=== PATIENT | female | born 1940 | race Caucasian/White ===

== ENCOUNTER 2016-11-13 11:35 | Emergency (ER) | payer MEDICARE ==
--- NOTE | ~2016-11-13 | CR110 ---
[facility] A Service of [facility] & [facility] RADIOLOGY TEXT RESULTS PATIENT: MARILEE BENTLEY LOCATION: [facility] : 42 UNIT #: [id number] AGE: [address]: ROBYN HICKEY SEX: F ORDER DR: [id number] [facility] [address] [place], [place] [address] [id number] E MR#: [id number] Acc #: [id number] NAME: MARILEE BENTLEY : 1940 SEX: F STUDY DATE/TIME: 11/13/2016 11:02 UNIT: [facility] ROOM: STUDY DESCRIPTION: CR Finger 2 View 3rd Lt Attending Physician: Robyn Hickey Aprn Ordering Physician: Robyn Hickey Aprn Primary Care Physician: Coral Patrick A.P.RAdelinaNAdelina MEDICAL IMAGING REPORT This report is preliminary unless electronic signature is present EXAM 3 views of the left middle finger INDICATIONS Third finger pain after putting her hand on a sewing machine. FINDINGS No acute fracture or subluxation of the left middle finger is identified. I do not see any focal soft tissue abnormalities. Certainly no radiopaque retained foreign body is seen. There do appear to be some mild degenerative changes involving the left hand. IMPRESSION No acute findings. Dictated by... Kizzy Serrano M.D. THIS IS AN ELECTRONICALLY VERIFIED REPORT Kizzy Serrano M.D. at 11/14/2016 12:58 PM AFF/rnr TD: 11/13/2016 13:05 JOB #: [id number] MEDICAL IMAGING REPORT Page 1 of 1 COPY
[~2016-11-13 11:35] MED LIST: ACIDOPHILUS1 TAB PO; ALFALFA; ALLEGRA; ALLEGRA ALLERG180 MG PO; ALLEGRA PO; AMIODARONE PO; ASCORBIC ACID500 MG; ASPIRIN; ASPIRIN PO; AUGMENTIN PO; AUGMENTIN875 MG PO; B-100 COMPLEX1 TAB PO; BENIFIBER PO; BIOTIN5 MG PO; BLACK COHASH; CALCIUM MAGNESI1 TA1 PO; CARDIZEM CD120 MG PO; COQ-1010 MG; COQ1050 MG PO; COUMADIN2.5 MG PO; COUMADIN5 MG PO; CRANBERRY CONC500 MG PO; CRANBERRY TABS; CRANBERRY200 MG PO; DESYREL50 MG PO; DICYCLOMINE HCL10 MG PO; DICYCLOMINE HCL20 MG PO; DILTIAZEM 24HR120 M1 PO; DOCUSATE SODIU100 MG PO; GARLIC; GIN-ZING100 MG; GINKGO BILOBA30 MG; GINSENG; GLUCOSAMINE-CHO1 TA5 PO; Ginkgo Biloba; IMDUR PO; ISMO; ISMO20 MG PO; K-DUR20 ME1 PO; LASIX PO; LASIX20 MG PO; LIPITOR PO; LIPITOR20 MG PO; LOPRESSOR; LOPRESSOR PO; LOVENOX SUBQ; LOW DOSE ASPIRI81 M2 PO; MAGNESIUM; MILK OF MAGNESIA PO; MULTAQ400 MG PO; MULTI-VITAMIN1 TAB; MULTIPLE VITAMI1 T13 PO; NASACORT AQ16.5 GM; NATURAL VITA400 UNI2 PO; NEXIUM; NEXIUM PO; NIACIN; NIACIN500 M2 PO; OMEGA 3-6-9; OMEGA 3-6-9 11200 MG PO; OSTEO BI-FLEX1 EAC1 PO; OYSTER CALCIUM500 MG; OYSTER CALCIUM500 MG PO; PERCOCET5/325; POTASSIUM CHLO20 ME1 PO; PRILOSEC PO; SINGULAIR; SINGULAIR PO; SLEEP-AID25 MG PO; SOTALOL AF80 MG PO; SOTALOL120 MG PO; SOTALOL160 MG PO; STOOL SOFTENER; THERAPEUTIC M1 UDTA1 PO; TOPROL XL PO; TRAZODONE; TRAZODONE PO; VIT B-12; VITAMIN B12; VITAMIN C; VITAMIN C500 M1 PO; VITAMIN D 22000 UNIT PO; VITAMIN E200 UNIT PO; WARFARIN SODIU2.5 MG PO
== END 2016-11-13 12:25 | disposition home or self-care (01) ==
LOC: CFTX 11:35
DX: S61.213A Laceration without foreign body of left middle finger without damage to nail, initial encounter (principal); W22.8XXA Striking against or struck by other objects, initial encounter; Y92.9 Unspecified place or not applicable; E78.5 Hyperlipidemia, unspecified; Z88.8 Allergy status to other drugs, medicaments and biological substances
CPT/HCPCS: 12001; 73140; 99283

== ENCOUNTER 2017-02-02 17:59 | Emergency (ER) | payer MEDICARE ==
--- NOTE | ~2017-02-02 | EKG ---
PATIENT: MARILEE BENTLEY UNIT #: [id number] Ventricular Rate: 60 BPM Atrial Rate: 60 BPM P-R Interval: 282 ms QRS Duration: 90 ms Q-T Interval: 450 ms QTC Calculation(Bezet): 450 ms P [place]: 44 degrees Calculated R [place]: -6 degrees Calculated T [place]: 50 degrees Diagnosis Line: AV dual-paced rhythm with prolonged AV conduction Diagnosis Line: Abnormal ECG Diagnosis Line: When compared with ECG of 04-JUN-2016 05:26, Diagnosis Line: Electronic ventricular pacemaker has replaced Diagnosis Line: Sinus rhythm Diagnosis Line: Confirmed by JANESSA LIRA MD ([id number]) on Diagnosis Line: 02/03/2017 11:07:33 AM INTERPRETING MD: SORAYA MCCLELLAND
[2017-02-02 19:09] LABS: POC - CKMB 2.1 ng/mL (0.0-7.9); POC - TROPONIN <0.05 ng/mL (<=0.05)
[2017-02-02 19:13] LABS: URINE SOURCE CLEAN CATCH
[2017-02-02 19:17] LABS: BASOPHIL# 0.1 X10e3 (0-0.3); BASOPHIL% 0.9 % (0-2.5); EOSINOPHIL# 0.4 X10e3 (0-0.7); EOSINOPHIL% 4.7 % (0.0-7.0); HEMATOCRIT 38.2 % (35.0-45.0); HEMOGLOBIN 12.9 gm/dL (12.0-16.0); LYMPHOCYTE# 1.8 X10e3 (1.0-3.5); LYMPHOCYTE% 24.3 % (17.0-45.0); MEAN CELL VOLUME 95.6 FL (83-96); MEAN CORPUSCULAR HEMOGLOBIN 32.4 PG (28-34); MEAN CORPUSCULAR HGB CONC 33.9 g/dL (30-36); MEAN PLATELET VOLUME 7.2 FL (6.5-11.5); MONOCYTE# 0.8 X10e3 (0-1.0); MONOCYTE% 10.5 % (3.0-12.0); NEUTROPHIL# 4.4 X10e3 (1.5-7.1); NEUTROPHIL% 59.6 % (40-75); PLATELET COUNT 232 X10e3 (140-420); RED BLOOD COUNT 3.99 X10e (3.90-5.30); RED CELL DISTRIBUTION WIDTH 14.2 % (11.0-15.5); WHITE BLOOD COUNT 7.5 X10e3 (4.0-10.5)
[2017-02-02 19:18] LABS: DIFF IND NO
[2017-02-02 19:19] LABS: URINE APPEARANCE CLEAR; URINE BILIRUBIN NEG (NEG); URINE BLOOD NEG (NEG); URINE COLOR YELLOW; URINE GLUCOSE NEG (NEG); URINE KETONE NEG (NEG); URINE LEUKOCYTE ESTERASE 2+ (NEG); URINE NITRATE NEG (NEG); URINE PROTEIN NEG (NEG); URINE SPECIFIC GRAVITY 1.024 (1.003-1.035); URINE UROBILINOGEN 0.2 MG/DL (NEG)
[2017-02-02 19:23] LABS: CULTURE INDICATED? YES; URINE BACTERIA AUWI NEG (NEGATIVE); URINE SQUAMOUS EPITHELIAL CELL FEW /[HPF]
[2017-02-02 19:32] LABS: URBCS1 AUWI 0-2 /[HPF] (0-2); URINE CRYSTALS CALCIUM OXALATE /[HPF]
[2017-02-02 19:39] LABS: ALBUMIN SERUM 4.3 g/dL (3.5-5.0); BILIRUBIN, DIRECT 0.1 mg/dL (0.0-0.2); BILIRUBIN,INDIRECT 0.2 mg/dL (0.0-0.9); BILIRUBIN,TOTAL 0.3 mg/dL (0.2-2.0); BUN/CREATININE RATIO 26.36; CALCIUM SERUM 9.2 mg/dL (8.4-10.2); CREATININE SERUM 1.1 mg/dL (0.6-1.4); GLOM FILT RATE Estimated 49.1 mL/min (>60); POTASSIUM 3.9 mmol/L (3.5-5.1); PROTEIN TOTAL SERUM 7.5 g/dL (6.0-8.3)
== END 2017-02-02 20:25 | disposition home or self-care (01) ==
LOC: CED 17:59
PROVIDERS: Emergency Medicine
DX: E03.9 Hypothyroidism, unspecified (principal); R53.83 Other fatigue; I48.91 Unspecified atrial fibrillation; E78.5 Hyperlipidemia, unspecified; I10 Essential (primary) hypertension; J44.9 Chronic obstructive pulmonary disease, unspecified; Z90.710 Acquired absence of both cervix and uterus; Z90.49 Acquired absence of other specified parts of digestive tract; Z91.048 Other nonmedicinal substance allergy status
CPT/HCPCS: 36415; 80048; 80076; 81003; 82553; 84443; 84484; 85025; 87086; 87088; 87186; 93005; 99285

== ENCOUNTER 2017-02-11 19:23 | Emergency (ER) | payer MEDICARE | END 2017-02-11 20:55 | disposition home or self-care (01) | LOC: CED 19:23 | DX: Z00.00 Encounter for general adult medical examination without abnormal findings (principal); I48.91 Unspecified atrial fibrillation; Z90.49 Acquired absence of other specified parts of digestive tract; Z90.710 Acquired absence of both cervix and uterus; Z88.8 Allergy status to other drugs, medicaments and biological substances | CPT/HCPCS: 99284 ==

== ENCOUNTER 2017-02-14 21:11 | Emergency (ER) | payer MEDICARE ==
--- NOTE | ~2017-02-14 | CR72 ---
[facility] A Service of [facility] RADIOLOGY TEXT RESULTS PATIENT: MARILEE BENTLEY LOCATION: [facility] : 41 UNIT #: [id number] AGE: [address]: Kam Bender MD SEX: F ORDER DR: [id number] [place], [place] [address] [id number] E MR#: [id number] Acc #: [id number] NAME: MARILEE BENTLEY : 1940 SEX: F STUDY DATE/TIME: 02/14/2017 23:37 UNIT: [facility] ROOM: STUDY DESCRIPTION: CR Chest Single View Portable Attending Physician: Kam Bender M.D. Ordering Physician: Kam Bender M.D. Primary Care Physician: Yashira HoltPAdelinaRMarlon MEDICAL IMAGING REPORT This report is preliminary unless electronic signature is present EXAM Portable chest INDICATIONS Shortness of air for the past 2 months. PROCEDURE Frontal view chest COMPARISON 07/22/2016 FINDINGS Mild cardiomegaly is stable dual lead pacer unchanged. No dense consolidation. Scarring or atelectasis in the right lung base. No pneumothorax. IMPRESSION 1. Scarring or atelectasis in the right lung base. Otherwise no acute findings. 2. Stable mild cardiomegaly. Dictated by... Luis A Tiwari M.D. THIS IS AN ELECTRONICALLY VERIFIED REPORT Luis A Tiwari M.D. at 02/15/2017 9:56 PM EED/rnr TD: 02/15/2017 05:34 JOB #: [id number] MEDICAL IMAGING REPORT [facility] A Service of [facility] RADIOLOGY TEXT RESULTS PATIENT: MARILEE BENTLEY LOCATION: [facility] : 42 UNIT #: [id number] AGE: [address]: Kam Bender MD SEX: F ORDER DR: Page 1 of 1 COPY
--- NOTE | ~2017-02-14 | EKG ---
PATIENT: MARILEE BENTLEY UNIT #: [id number] Ventricular Rate: 62 BPM Atrial Rate: 62 BPM P-R Interval: 216 ms QRS Duration: 90 ms Q-T Interval: 464 ms QTC Calculation(Bezet): 470 ms P [place]: 58 degrees Calculated R [place]: -2 degrees Calculated T [place]: 43 degrees Diagnosis Line: Sinus rhythm with 1st degree A-V block Diagnosis Line: Otherwise normal ECG Diagnosis Line: When compared with ECG of 02-FEB-2017 18:19, Diagnosis Line: Sinus rhythm has replaced Electronic ventricular Diagnosis Line: pacemaker Diagnosis Line: Confirmed by CONSTANTINO CARLSON MD ([id number]) on Diagnosis Line: 02/15/2017 2:01:46 PM INTERPRETING MD: ROBYN MCCLELLAND
[2017-02-14 23:53] LABS: URINE SOURCE CLEAN CATCH
[2017-02-14 23:56] LABS: BASOPHIL% 0.3 % (0-2.5); EOSINOPHIL# 0.6 X10e3 (0-0.7); EOSINOPHIL% 5.4 % (0.0-7.0); HEMATOCRIT 37.3 % (35.0-45.0); HEMOGLOBIN 12.2 gm/dL (12.0-16.0); LYMPHOCYTE# 2.2 X10e3 (1.0-3.5); LYMPHOCYTE% 18.6 % (17.0-45.0); MEAN CELL VOLUME 98.7 FL (83-96); MEAN CORPUSCULAR HEMOGLOBIN 32.2 PG (28-34); MEAN CORPUSCULAR HGB CONC 32.6 g/dL (30-36); MEAN PLATELET VOLUME 6.8 FL (6.5-11.5); MONOCYTE# 0.8 X10e3 (0-1.0); MONOCYTE% 6.8 % (3.0-12.0); NEUTROPHIL# 8.1 X10e3 (1.5-7.1); NEUTROPHIL% 68.9 % (40-75); PLATELET COUNT 201 X10e3 (140-420); RED BLOOD COUNT 3.78 X10e (3.90-5.30); RED CELL DISTRIBUTION WIDTH 13.7 % (11.0-15.5); WHITE BLOOD COUNT 11.8 X10e3 (4.0-10.5)
[2017-02-14 23:59] LABS: DIFF IND NO
[2017-02-15 00:03] LABS: URINE APPEARANCE TURBID; URINE BILIRUBIN NEG (NEG); URINE BLOOD NEG (NEG); URINE COLOR DK YELLOW; URINE GLUCOSE NEG (NEG); URINE KETONE TRACE (NEG); URINE LEUKOCYTE ESTERASE 2+ (NEG); URINE NITRATE NEG (NEG); URINE PROTEIN 1+ (NEG); URINE SPECIFIC GRAVITY 1.028 (1.003-1.035)
[2017-02-15 00:06] LABS: CULTURE INDICATED? YES; URINE BACTERIA AUWI NEG (NEGATIVE); URINE SQUAMOUS EPITHELIAL CELL MANY /[HPF]; UWBCS1 AUWI 50-100 (0-5)
[2017-02-15 00:08] LABS: URBCS1 AUWI 0-2 /[HPF] (0-2)
[2017-02-15 00:09] LABS: U HYALINE CASTS AUWI 0-2 /[LPF]; URINE CRYSTALS CALCIUM OXALATE /[HPF]; URINE MUCUS PRESENT
[2017-02-15 00:21] LABS: INR 2.1; PROTHROMBIN TIME (PATIENT) 22.4 SECONDS (10.0-11.7)
[2017-02-15 00:22] LABS: ALBUMIN SERUM 3.8 g/dL (3.5-5.0); BILIRUBIN, DIRECT 0.2 mg/dL (0.0-0.2); BILIRUBIN,INDIRECT 0.6 mg/dL (0.0-0.9); BILIRUBIN,TOTAL 0.8 mg/dL (0.2-2.0); BUN/CREATININE RATIO 19.33; CALCIUM SERUM 8.8 mg/dL (8.4-10.2); CREATININE SERUM 1.5 mg/dL (0.6-1.4); GLOM FILT RATE Estimated 33.7 mL/min (>60); POTASSIUM 3.5 mmol/L (3.5-5.1); PROTEIN TOTAL SERUM 7.5 g/dL (6.0-8.3)
[2017-02-15 00:30] LABS: POC - CKMB 6.8 ng/mL (0.0-7.9); POC - TROPONIN <0.05 ng/mL (<=0.05)
== END 2017-02-15 01:05 | disposition home or self-care (01) ==
LOC: CED 21:11
PROVIDERS: Emergency Medicine
DX: N39.0 Urinary tract infection, site not specified (principal); R53.81 Other malaise; R53.83 Other fatigue; I10 Essential (primary) hypertension; J44.9 Chronic obstructive pulmonary disease, unspecified; I48.91 Unspecified atrial fibrillation; Z88.8 Allergy status to other drugs, medicaments and biological substances
CPT/HCPCS: 36415; 71010; 80048; 80076; 81003; 82553; 82947; 84443; 84484; 85025; 85610; 87086; 93005; 99285

== ENCOUNTER 2017-03-23 20:44 | Emergency (ER) | payer MEDICARE ==
[~2017-03-23] VITALS: Ht 152.4 cm; Wt 75.3 kg
== END 2017-03-23 22:37 | disposition home or self-care (01) ==
LOC: CED 20:44
DX: L03.115 Cellulitis of right lower limb (principal); T63.461A Toxic effect of venom of wasps, accidental (unintentional), initial encounter; I48.91 Unspecified atrial fibrillation; Z90.49 Acquired absence of other specified parts of digestive tract; Z90.710 Acquired absence of both cervix and uterus; Z91.048 Other nonmedicinal substance allergy status
CPT/HCPCS: 99283